=== PATIENT | female | born 1990 | race Caucasian/White ===

== ENCOUNTER 2020-02-22 09:20 | Outpatient (CLI) | payer MEDICAID ==
[2020-02-22 10:34] LABS: APPEARANCE,URINE CLEAR; BILIRUBIN,URINE NEGATIVE (NEGATIVE); COLOR,URINE YELLOW; GLUCOSE, URINE NEGATIVE (NEGATIVE); KETONES,URINE NEGATIVE (NEGATIVE); LEUKOCYTE ESTERASE,URINE NEGATIVE (NEGATIVE); NITRITE,URINE NEGATIVE (NEGATIVE); PROTEIN,URINE NEGATIVE (NEGATIVE); URINE SPECIFIC GRAVITY 1.012; UROBILINOGEN,URINE NEGATIVE mg/dL (<2.0)
[2020-02-22 11:05] LABS: URINE AMPHETAMINES SCREEN NEGATIVE; URINE BARBITURATES SCREEN NEGATIVE; URINE BENZODIAZEPINES SCREEN NEGATIVE; URINE COCAINE SCREEN NEGATIVE; URINE METHADONE SCREEN NEGATIVE; URINE PHENCYCLIDINE SCREEN NEGATIVE
[2020-02-22 11:09] LABS: URINE MARIJUANA (THC) SCREEN UNCONFIRMED POSITIVE
--- NOTE | 2020-02-22 11:54 | Non Stress Test Report ---
Non Stress Test Datetime Report Generated by CPN: 02/22/2020 11:54 DEMOGRAPHIC EGA NST: 35.2 INDICATION Indication for Study (NST) Other: false labor MONITORING Monitor Explained: Monitor Explained; Test Explained; Patient Verbalized Understanding Time on Monitor: 02/22/2020 09:35 Time off Monitor: 02/22/2020 10:35 NST Duration: 60 NST INTERVENTIONS NST Interventions: PO Hydration; Reposition Patient Physician Notified NST: Dr. Curt BABY A: [id number] BABY A Movement : Present Contraction Frequency : none FHR Baseline : 145 Accelerations : 15X15 Decelerations : Variable Variability : Moderate 6-25bpm NST Review: Meets Criteria for Reactive NST NST Review and Verified By : TMartin,RN NST Results: Reactive NST REPORT Report Trigger: Send Report
== END 2020-02-22 10:36 | disposition home or self-care (01) ==
LOC: LC 09:20
PROVIDERS: ATTEND Obstetrics & Gynecology
DX: O47.03 False labor before 37 completed weeks of gestation, third trimester (principal); Z3A.35 35 weeks gestation of pregnancy; Z87.891 Personal history of nicotine dependence
CPT/HCPCS: 59025; 81001; 80307; G0480 ×2; 80349

== ENCOUNTER 2020-03-13 03:01 | Inpatient (IN) | payer MEDICAID ==
[2020-03-13] MEDS ORDERED: OXYTOCIN 10 UNIT/ML VIAL ONE (03:18)
[2020-03-13] MEDS ORDERED: MISOPROSTOL 0.2 MG TABLET ONE (03:19)
[2020-03-13] MEDS ORDERED: LIDOCAINE 1% INJ-PF (10 MG/ML) 30 ML SDV ONE (03:19)
[2020-03-13] MEDS ORDERED: OXYTOCIN/0.9 % SODIUM CHLORIDE 30 UNIT/500 ML RTUINJ ONE (03:19)
[2020-03-13] MEDS ORDERED: RINGERS SOLUTION,LACTATED 1,000 ML IV PRN (03:21)
[2020-03-13] MEDS ORDERED: RINGERS SOLUTION,LACTATED 1,000 ML IV ONE (03:21)
[2020-03-13] MEDS ORDERED: PENICILLIN G POTASSIUM 5,000,000 UNIT in DEXTROSE 5%-WATER 100 ML IV ONE (03:21)
[2020-03-13] MEDS ORDERED: PENICILLIN G-K 5 MILLION UNIT VIAL ONE ×2 (03:23→07:17)
--- NOTE | 2020-03-13 03:57 | Admission Physical ---
Datetime Report Generated by CPN: 03/13/2020 03:56 CURRENT ADMISSION Chief Complaint: Uterine Contractions Indication for Induction: Not Applicable Admit Impression : Term, Intrauterine Admit Plan: Admit to Unit ALLERGIES Medication Allergies: No Medication Allergies: No Known Allergies (03/13/2020) Latex: No Latex Allergies OBSTETRICAL HISTORY EDC: 03/26/2020 00:00 : 4 Para: 1 Term: 1 Livin Gestational Diabetes: No Incompetent Cervix: No Infertility: No ART Treatment: No Uterine Anomaly: No IUGR: No Hx Previous C/S: No Macrosomia: No Hx Loss/Stillborn: No PIH: No Hx : No Placenta Previa/Abruption: No Depression/PP Depression: No Post Hemorrhage: No Current Procedures: Ultrasound SEE RECORDS Alcohol: No Marijuana : No Cocaine: No Other Illicit Drugs: No Cigarettes: Former Smoker. [id number] MEDICAL HISTORY Diabetes: No Blood Transfusion: No Pulmonary Disease (Asthma, TB): No Breast Disease: No Hypertension: No School Admissions Representative Surgery: No Heart Disease: No Hosp/Surgery: Yes Autoimmune Disorder: No Anesthetic Complications: No Kidney Disease: No Abnormal Pap Smear: Yes Neuro/Epilepsy: No Psychiatric Disorders: No Other Medical Diseases: No Hepatitis/Liver Disease: No Varicosities/Phlebitis: No Trauma/Violence : No Thyroid Dysfunction: No Medical History Comments: SUrgery on right elbow 2008. Abnormal pap 2020 INFECTIOUS HISTORY Gonorrhea: No Genital Herpes: No Chlamydia: No Tuberculosis: No Syphilis: No Hepatitis: No HIV/AIDS Exposure: No Rash or Viral Illness: No HPV: No PHYSICAL EXAM General: Normal HEENT: Normal Neurologic: Normal Thyroid: Normal Heart: Normal Lungs: Normal Breast: Deferred Back: Normal Abdomen: Normal Genitourinary Exam: Normal Extremities: Normal DTRs: Normal Pelvic Type: Adequate Vital Signs: Reviewed VAGINAL EXAM Dilatation: 8 Effacement: 90 Station: -1 MEMBRANES Pooling: Negative Membranes: Intact FETUS A EGA: 38.1 Monitoring: External US FHR- Baseline: 130 Variability: Moderate 6-25bpm Accelerations: 15X15 Decelerations: None Presentation: Vertex Admit Comment: Admit for labor. PLANS FOR LABOR AND DELIVERY Labor and Delivery: None Pain Management: Epidural Feeding Preference: Breast INFORMED CONSENT Signature: with User ID: [email or web address]
[2020-03-13 04:00] LABS: ABSOLUTE BASOPHILS # (AUTO) 0.1 10^3/uL (0.0-0.2); ABSOLUTE EOSINOPHILS # (AUTO) 0.1 10^3/uL (0.0-0.6); ABSOLUTE LYMPHOCYTES (AUTO) 2.2 10^3/uL (0.5-4.7); ABSOLUTE MONOCYTES (AUTO) 0.9 10^3/uL (0.1-1.4); ABSOLUTE NEUT (AUTO) 8.6 10^3/uL (1.7-8.2); BASOPHILS % (AUTO) 1.2 % (0-2); EOSINOPHILS % (AUTO) 1.2 % (0-6); HEMATOCRIT 36.5 % (36.0-47.0); HEMOGLOBIN 12.3 g/dL (12.0-15.5); LYMPHOCYTES % (AUTO) 18.2 % (13-45); MEAN CORPUSCULAR HEMOGLOBIN 28.1 pg (27.0-33.4); MEAN CORPUSCULAR HGB CONC 33.6 g/dL (32.0-36.0); MEAN CORPUSCULAR VOLUME 84 fl (80-97); MONOCYTES % (AUTO) 7.3 % (3-13); PLATELET COUNT 214 10^3/uL (150-450); RED BLOOD COUNT 4.36 10^6/uL (3.72-5.28); RED CELL DISTRIBUTION WIDTH 14.3 % (11.5-14.0); SEGMENTED NEUTROPHILS % (AUTO) 72.1 % (42-78); TOTAL CELLS COUNTED % (AUTO) 100 %; WHITE BLOOD COUNT 11.9 10^3/uL (4.0-10.5)
[2020-03-13 04:06] LABS: APPEARANCE,URINE CLOUDY; BILIRUBIN,URINE NEGATIVE (NEGATIVE); COLOR,URINE RED; GLUCOSE, URINE NEGATIVE (NEGATIVE); KETONES,URINE NEGATIVE (NEGATIVE); LEUKOCYTE ESTERASE,URINE LARGE (NEGATIVE); NITRITE,URINE NEGATIVE (NEGATIVE); PROTEIN,URINE 100 mg/dL (NEGATIVE); URINE SPECIFIC GRAVITY 1.014; UROBILINOGEN,URINE NEGATIVE mg/dL (<2.0)
[2020-03-13 04:23] LABS: URINE AMPHETAMINES SCREEN NEGATIVE; URINE BARBITURATES SCREEN NEGATIVE; URINE BENZODIAZEPINES SCREEN NEGATIVE; URINE METHADONE SCREEN NEGATIVE; URINE PHENCYCLIDINE SCREEN NEGATIVE
[2020-03-13 04:24] LABS: URINE MARIJUANA (THC) SCREEN UNCONFIRMED POSITIVE
[2020-03-13] MEDS ORDERED: EPHEDRINE SULFATE INJ 50 MG/1 ML AMPULE ONE (04:28)
[2020-03-13] MEDS ORDERED: BUPIVACAINE HCL 0.25 % INJ/PF (2.5 MG/1 ML) 30 ML VIAL ONE (04:28)
[2020-03-13] MEDS ORDERED: FENTANYL/BUPIVACAINE/NS/PF 300 MCG/150 ML RTUINJ EPI ONE (04:28)
[2020-03-13 05:51] LABS: CHLAM PCR NOT DETECTED (NOT DETECT)
--- NOTE | 2020-03-13 13:23 | Delivery Summary ---
Del Sum A-C Datetime Report Generated by CPN: 03/13/2020 13:23 DELIVERY PERSONNEL DELIVERY PERSONNEL: [id number] Delivery Doctor:: Cesilia Rosas CNM Nurse Soil Analyst Certified:: Cesilia Rosas CNM Labor and Delivery Nurse:: Lucina Alvarado RNvisitor services representative Nurse:: Attila Hansen RN Nursery Nurse:: Nadira Fulton RN Nursery Nurse:: LEISA Bueno/PAULINE: Johanny Bethea CNA II MATERNAL INFORMATION Delivery Anesthesia: Epidural Medications After Delivery: Pitocin Bolus-Please Comment Delivery QBL: 370 Maternal Complications: None Other Maternal Complications: vianey 30 units in 500 ml NS/D5W Provider Comments: SVDVF PETERSON with short cord. Infant to maternal abd, dried and stimulated. Cord clamped x 2, cut per FOB. Placenta spont via boothe with trailing membranes. FF immediately, then MOLLY cleared of clots. QBL 370, Apgars 8,9. Mother and stable. LABOR SUMMARY EDC: 03/26/2020 00:00 No. Babies in Womb: 1 Attempted: No Labor Anesthesia: Epidural LABOR INFORMATION Reason for Induction: Not Applicable Onset of Labor: 03/13/2020 03:00 Complete Dilatation: 03/13/2020 08:30 Oxytocin: N/A Group B Beta Strep: Unknown Antibiotics # of Doses: 2 Antibiotics Time of Last Dose: 729 Name of Antibiotic Given: Penicillin Steroids Given: None Reason Steroids Not Administered: Not Applicable MEMBRANES Membranes Rupture Method: Spontaneous Rupture of Membranes: 03/13/2020 03:18 Length of Rupture (hr): 7.45 Amniotic Fluid Color: Clear Amniotic Fluid Odor: Normal STAGES OF LABOR Stage 1 hr: 5 Stage 1 min: 30 Stage 2 hr: 2 Stage 2 min: 15 Stage 3 hr: 0 Stage 3 min: 11 Total Time in Labor hr: 7 Total Time in Labor min: 56 VAGINAL DELIVERY Episiotomy: None Laceration #1: Periurethral Laceration Extension #1: First Degree Laceration #2: Perineal Laceration Extension #2: First Degree Laceration Repair: Not Applicable Laceration Repair Note: superficial laceration, no repairs needed Sponge Count Correct: N/A Sharps Count Correct: N/A BABY A INFORMATION Delivery Date/Time: 03/13/2020 10:45 Method of Delivery: Vaginal Nurse Controlled Delivery: No Born in Route : No : N/A Forceps: Outlet Vacuum Extraction: N/A Shoulder Dystocia : No PRESENTATION/POSITION BABY A Presentation: Cephalic Cephalic Presentation: Vertex Vertex Position: Right Occipital Anterior Breech Presentation: N/A PLACENTA INFORMATION BABY A Placenta Delivery Time : 03/13/2020 10:56 Placenta Method of Delivery: Spontaneous Placenta Status: Delivered SCORES BABY A Heart Rate 1 min: >100 bpm Resp Effort 1 min: Good Cry Reflex Irritability 1 min: Cough or Sneeze or Pulls Away Muscle Tone 1 min: Active Motion Color 1 min: Blue/Pale Resuscitation Effort 1 min: Tactile Stimulation SCORE 1 MIN: 8 Heart Rate 5 min: >100 bpm Resp Effort 5 min: Good Cry Reflex Irritability 5 min: Cough or Sneeze or Pulls Away Muscle Tone 5 min: Active Motion Color 5 min: Body [place], Extremities Blue Resuscitation Effort 5 min: Tactile Stimulation SCORE 5 MIN: 9 INFORMATION BABY A Gestational Age at Delivery: 38.0 Gestational Status: Early Term- 37- 38.6 Weeks Outcome : Liveborn Condition : Stable Sex: Female IDENTIFICATION BABY A Verification Date/Time: 03/13/2020 11:11 ID Band Number: [id number] Mother's Name Verified: Yes Infant RN Verifying : Carli, RN WEIGHT/LENGTH BABY A Infant Birthweight (gm): 3155 Weight (lb): 6 Weight (oz): 15 Infant Length (in): 19.50 Infant Length (cm): 49.53 CORD INFORMATION BABY A No. Cord Vessels: 3 Nuchal Cord : N/A Cord Blood Taken: Yes-For Storage (Mom's Blood type +) Suction: None ASSESSMENT BABY A Skin to Skin: Yes Skin to Skin Time (min): 60 BABY B INFORMATION : N/A SIGNATURES Assignment: Ajay Greenwood MD Signature: with User ID: Carters : with User ID: [email or web address] : I was personally available for consultation and serving as supervising physician for the P.
[2020-03-13] MEDS ORDERED: ZOLPIDEM TARTRATE 5 MG TABLET PO PRN (16:29)
[2020-03-13] MEDS ORDERED: DIBUCAINE 1% OINTMENT 28 GM TP PRN (16:29)
[2020-03-13] MEDS ORDERED: ACETAMINOPHEN 650 MG SUPP.RECT PR PRN (16:29)
[2020-03-13] MEDS ORDERED: PROMETHAZINE HCL INJ 25 MG/1 ML VIAL IV PRN (16:29)
[2020-03-13] MEDS ORDERED: GLYCERIN/WITCH HAZEL LEAF 1 EACH MED..WIPE TP PRN (16:29)
[2020-03-13] MEDS ORDERED: PROMETHAZINE HCL 25 MG SUPP.RECT PR PRN (16:29)
[2020-03-13] MEDS ORDERED: NA PHOS,M-B/NA PHOS,DI-BA (ADULT) 133 ML ENEMA PR PRN (16:29)
[2020-03-13] MEDS ORDERED: DIPH/PERTUSS(ACELL)/TETANUS VAC/PF 0.5 ML SYR (>=10YO) IM PRN (16:29)
[2020-03-13] MEDS ORDERED: PROMETHAZINE HCL 25 MG TABLET PO PRN (16:29)
[2020-03-13] MEDS ORDERED: BENZOCAINE/MENTHOL AEROSOL SPRAY 56 ML TOP PRN (16:29)
[2020-03-13] MEDS ORDERED: PSEUDOEPHEDRINE HCL 30 MG TABLET PO PRN (16:29)
[2020-03-13] MEDS ORDERED: OXYTOCIN/0.9 % SODIUM CHLORIDE 30 UNIT/500 ML RTUINJ IV PRN (16:29)
[2020-03-13] MEDS ORDERED: DIPHENHYDRAMINE HCL 25 MG CAPSULE PO PRN (16:29)
[2020-03-13] MEDS ORDERED: MEASLES,MUMPS&RUBELLA VACC/PF 0.5 ML VIAL SUBCUT PRN (16:29)
[2020-03-13] MEDS ORDERED: MAGNESIUM HYDROXIDE SUSP 30 ML UDCUP PO PRN (16:29)
[2020-03-13] MEDS ORDERED: IBUPROFEN 800 MG TABLET ONE (16:31)
[2020-03-13] MEDS: IBUPROFEN 800 MG TABLET PO SCH ×3 (16:53→19:31)
[2020-03-13] MEDS: FERROUS SULFATE 325 MG TABLET PO SCH (18:03)
[2020-03-13] MEDS: DOCUSATE SODIUM 100 MG CAPSULE PO SCH (18:03)
[2020-03-13] MEDS: PENICILLIN G POTASSIUM 2,500,000 UNIT in DEXTROSE 5%-WATER 50 ML IV SCH (19:33)
[2020-03-13] MEDS: FAMOTIDINE 20 MG TABLET PO SCH (23:03)
[2020-03-13] MEDS: ACETAMINOPHEN WITH CODEINE #3 TABLET PO PRN (23:21)
[2020-03-14] MEDS: IBUPROFEN 800 MG TABLET PO SCH ×3 (02:50→17:47)
[2020-03-14 07:32] LABS: HEMATOCRIT 32.7 % (36.0-47.0); HEMOGLOBIN 11.2 g/dL (12.0-15.5); MEAN CORPUSCULAR HEMOGLOBIN 28.6 pg (27.0-33.4); MEAN CORPUSCULAR HGB CONC 34.2 g/dL (32.0-36.0); MEAN CORPUSCULAR VOLUME 84 fl (80-97); PLATELET COUNT 151 10^3/uL (150-450); RED BLOOD COUNT 3.91 10^6/uL (3.72-5.28); RED CELL DISTRIBUTION WIDTH 14.1 % (11.5-14.0); WHITE BLOOD COUNT 9.9 10^3/uL (4.0-10.5)
[2020-03-14] MEDS: ACETAMINOPHEN WITH CODEINE #3 TABLET PO PRN (08:05)
[2020-03-14] MEDS: DOCUSATE SODIUM 100 MG CAPSULE PO SCH ×2 (10:21→17:49)
[2020-03-14] MEDS: FAMOTIDINE 20 MG TABLET PO SCH ×2 (10:22→21:41)
[2020-03-14] MEDS: PRENATAL VITAMIN W DHA CAPSULE PO SCH (10:22)
[2020-03-14] MEDS: SENNOSIDES/DOCUSATE 8.6-50 MG 1 EACH TABLET PO SCH (10:22)
[2020-03-14] MEDS: FERROUS SULFATE 325 MG TABLET PO SCH ×2 (10:22→17:49)
--- NOTE | 2020-03-14 10:26 | PDOC PROGRESS REPORT ---
Subjective-OB Progress Note for:: 03/14/20 Subjective: Doing well, no c/o, hsb at bedside with baby, , ready to go home in AM Physical Exam (OB) Vital Signs: Temp Pulse Resp BP Pulse Ox 98.2 F 59 L 16 102/65 98 03/14/20 07:23 03/14/20 07:23 03/14/20 07:23 03/14/20 07:23 03/14/20 07:23 Intake & Output 03/13/20 03/14/20 03/15/20 06:59 06:59 06:59 Intake Total 1000 Balance 1000 Weight 88.9 kg - PIH/Pre-Eclampsia Clonus: Negative Headache: Absent Epigastric Pain: No Visual Changes: No - Lochia Lochia Amount: Small 10-25 ml Lochia Color: Rubra/Red - Abdomen Description: Soft, Round Hernia Present: No Fundal Description: Firm, Midline Fundal Height: u/u - u/2 Objective-Diagnostic Laboratory: 03/14/20 06:50 03/14/20 06:50 WBC 9.9 RBC 3.91 Hgb 11.2 L Hct 32.7 L MCV 84 MCH 28.6 MCHC 34.2 RDW 14.1 H Plt Count 151 Assessment and Plan(PN) - Assessment and Plan (1) (spontaneous vaginal delivery) Is this a current diagnosis for this admission?: Yes (2) Active labor at term Is this a current diagnosis for this admission?: Yes - Time Spent with Patient Time with patient: Less than 15 minutes Medications reviewed and adjusted accordingly: Yes - Disposition Anticipated Discharge: Home Within: within 24 hours
[2020-03-14 13:45] LABS: URINE COCAINE SCREEN NEGATIVE
[2020-03-15] MEDS: ACETAMINOPHEN WITH CODEINE #3 TABLET PO PRN (00:34)
[2020-03-15] MEDS: IBUPROFEN 800 MG TABLET PO SCH ×2 (01:10→09:52)
[2020-03-15 08:09] VITALS: BP 111/76
[2020-03-15] MEDS: PRENATAL VITAMIN W DHA CAPSULE PO SCH (09:52)
[2020-03-15] MEDS: FERROUS SULFATE 325 MG TABLET PO SCH (09:53)
[2020-03-15] MEDS: DOCUSATE SODIUM 100 MG CAPSULE PO SCH (09:53)
[2020-03-15] MEDS: SENNOSIDES/DOCUSATE 8.6-50 MG 1 EACH TABLET PO SCH (09:58)
[2020-03-15] MEDS: FAMOTIDINE 20 MG TABLET PO SCH (09:58)
--- NOTE | 2020-03-15 10:34 | PDOC PROGRESS REPORT ---
Subjective-OB Progress Note for:: 03/15/20 Subjective: Doing well, no c/o, ready to go home, , scant lochia Physical Exam (OB) Vital Signs: Temp Pulse Resp BP Pulse Ox 98.3 F 69 16 111/76 100 03/15/20 07:14 03/15/20 07:14 03/15/20 07:14 03/15/20 07:14 03/15/20 07:14 Intake & Output 03/14/20 03/15/20 03/16/20 06:59 06:59 06:59 Intake Total 1000 Balance 1000 - PIH/Pre-Eclampsia DTR's: 1 + Clonus: Negative Headache: Absent Epigastric Pain: No Visual Changes: No - Lochia Lochia Amount: Scant < 10 ml Lochia Color: Rubra/Red - Abdomen Description: Soft, Round Hernia Present: No Fundal Description: Firm Fundal Height: u/u - u/2 Objective-Diagnostic Laboratory: 03/14/20 06:50 Assessment and Plan(PN) - Assessment and Plan (1) (spontaneous vaginal delivery) Is this a current diagnosis for this admission?: Yes (2) Active labor at term Is this a current diagnosis for this admission?: Yes - Time Spent with Patient Time with patient: Less than 15 minutes Medications reviewed and adjusted accordingly: Yes - Disposition Anticipated Discharge: Home Within: within 24 hours
--- NOTE | 2020-03-15 10:38 | PDOC DISCHARGE SUMMARY ---
Impression - Admit/DC Date/PCP Admission Date/Primary Care Provider: 03/13/20 03:26 Discharge Date: 03/15/20 - Discharge Diagnosis (1) (spontaneous vaginal delivery) Is this a current diagnosis for this admission?: Yes (2) Active labor at term Is this a current diagnosis for this admission?: Yes - Additional Information Resuscitation Status: Full Code Discharge Diet: As Tolerated, Regular Discharge Activity: Activity As Tolerated, Pelvic Rest Referrals: GARETT CONNORS MD [ACTIVE STAFF] - Home Medications: Vit/Dha [ Multi + Dha Capsule] 1 cap PO DAILY capsule 03/15/20 HPI Gestational Age: 38 Reason(s) for Admission: Onset of Labor, PROM Procedures: NST, Ultrasound Intrapartum Procedure(s): Spontaneous Vaginal Delivery Complication(s): Laceration-Perineal, Laceration-Periurethral Laceration-Degree: 1st Hospital Course Hospital Course: routine Results Laboratory Results: WBC 9.9 10^3/uL (4.0-10.5) 03/14/20 06:50 RBC 3.91 10^6/uL (3.72-5.28) 03/14/20 06:50 Hgb 11.2 g/dL (12.0-15.5) L 03/14/20 06:50 Hct 32.7 % (36.0-47.0) L 03/14/20 06:50 MCV 84 fl (80-97) 03/14/20 06:50 MCH 28.6 pg (27.0-33.4) 03/14/20 06:50 MCHC 34.2 g/dL (32.0-36.0) 03/14/20 06:50 RDW 14.1 % (11.5-14.0) H 03/14/20 06:50 Plt Count 151 10^3/uL (150-450) 03/14/20 06:50 Lymph % (Auto) 18.2 % (13-45) 03/13/20 03:47 [place] % (Auto) 7.3 % (3-13) 03/13/20 03:47 Eos % (Auto) 1.2 % (0-6) 03/13/20 03:47 Baso % (Auto) 1.2 % (0-2) 03/13/20 03:47 Absolute Neuts (auto) 8.6 10^3/uL (1.7-8.2) H 03/13/20 03:47 Absolute Lymphs (auto) 2.2 10^3/uL (0.5-4.7) 03/13/20 03:47 Absolute Monos (auto) 0.9 10^3/uL (0.1-1.4) 03/13/20 03:47 Absolute Eos (auto) 0.1 10^3/uL (0.0-0.6) 03/13/20 03:47 Absolute Basos (auto) 0.1 10^3/uL (0.0-0.2) 03/13/20 03:47 Seg Neutrophils % 72.1 % (42-78) 03/13/20 03:47 Urine Color RED 03/13/20 03:07 Urine Appearance CLOUDY 03/13/20 03:07 Urine pH 6.0 (5.0-9.0) 03/13/20 03:07 Ur Specific [place] 1.014 03/13/20 03:07 Urine Protein 100 mg/dL (NEGATIVE) H 03/13/20 03:07 Urine Glucose (UA) NEGATIVE mg/dL (NEGATIVE) 03/13/20 03:07 Urine Ketones NEGATIVE mg/dL (NEGATIVE) 03/13/20 03:07 Urine Blood LARGE (NEGATIVE) H 03/13/20 03:07 Urine Nitrite NEGATIVE (NEGATIVE) 03/13/20 03:07 Urine Bilirubin NEGATIVE (NEGATIVE) 03/13/20 03:07 Urine Urobilinogen NEGATIVE mg/dL (<2.0) 03/13/20 03:07 Ur Leukocyte Esterase LARGE (NEGATIVE) H 03/13/20 03:07 Urine Ascorbic Acid NEGATIVE (NEGATIVE) 03/13/20 03:07 Membranes Rupture POSITIVE (NEGATIVE) H 03/13/20 03:12 Urine Opiates Screen NEGATIVE 03/13/20 03:07 Urine Methadone Screen NEGATIVE 03/13/20 03:07 Ur Barbiturates Screen NEGATIVE 03/13/20 03:07 Ur Phencyclidine Scrn NEGATIVE 03/13/20 03:07 Ur Amphetamines Screen NEGATIVE 03/13/20 03:07 U Benzodiazepines Scrn NEGATIVE 03/13/20 03:07 Urine Cocaine Screen NEGATIVE 03/13/20 03:07 U Marijuana (THC) Screen UNCONFIRMED POSITIVE 03/13/20 03:07 RPR NONREACTIVE (NONREACTIVE) 03/13/20 03:47 Chlamydia DNA (PCR) NOT DETECTED (NOT DETECT) 03/13/20 04:06 N.gonorrhoeae DNA (PCR) NOT DETECTED (NOT DETECT) 03/13/20 04:06 Blood Type A POSITIVE 03/13/20 03:47 Antibody Screen NEGATIVE 03/13/20 03:47 Plan Health Concerns: normal pp Plan of Treatment: discharge home, rev S&S to report Goals: no complications
[2020-03-18 08:37] LABS: HEPATITIS C QUANTITATION HCV Not Detected IU/mL (.)
== END 2020-03-15 15:35 | disposition home or self-care (01) | DRG 807 ==
LOC: LC 03:01 → LR 03:26 → 2S 16:40
PROVIDERS: ADMIT Obstetrics & Gynecology; ATTEND Obstetrics & Gynecology
PROC: 10E0XZZ Delivery of Products of Conception, External Approach (ICD-10-PCS; principal; 2020-03-13)
DX: O69.3XX0 Labor and delivery complicated by short cord, not applicable or unspecified (principal); Z37.0 Single live birth; O71.82 Other specified trauma to perineum and vulva; O70.0 First degree perineal laceration during delivery; Z87.891 Personal history of nicotine dependence; Z3A.38 38 weeks gestation of pregnancy
CPT/HCPCS: 1967; 36415; 80307; 80349; 81005; 84112; 85025; 85027; 86592; 86850; 86900; 86901; 87077; 87081; 87491; 87522; 87591; 94760; C1758; G0480; J2540; J2590; J3010; J3490